=== PATIENT | female | born 1985 | race Hispanic/Latino ===

== ENCOUNTER 2016-08-06 19:37 | Emergency (ER) | payer SELFPAY ==
[2016-08-06 19:52] VITALS: BP 117/59; PULSE 74; RESP 15; TEMP 98.9; O2SAT 99
--- NOTE | 2016-08-06 20:02 | ED PDOC ---
Upper Extremity Pain/Injury Time Seen by Provider: 08/06/16 19:37 Chief Complaint (Nursing): Abnormal Skin Integrity Chief Complaint (Provider): left hand injury History Per: Patient History/Exam Limitations: no limitations Onset/Duration Of Symptoms: Hrs (around 17:30) Current Symptoms Are (Timing): Still Present Additional Complaint(s): Rola Grove is a 30 year old female who presents to the emergency department with a complaint of a deep cut to left palm of her hand associated with numbness and tingling sensation to her 3rd finger sustained when she was cutting an avocado around 17:30 today. Denies any further medical complaints. Of note, she reports being up-to-date on her tetanus vaccination. PMD: none provided Past Medical History Reviewed: Historical Data, Nursing Documentation, Vital Signs Vital Signs: Last Vital Signs Temp 98.9 F 08/06/16 19:44 Pulse 74 08/06/16 19:44 Resp 15 08/06/16 19:44 BP 117/59 L 08/06/16 19:44 Pulse Ox 99 08/06/16 19:44 - Family History Family History: States: Unknown Family Hx - Social History Current smoker - smoking cessation education provided: No Alcohol: None Drugs: Denies - Immunization History Hx Tetanus Toxoid Vaccination: Yes - Home Medications Home Medications: Ambulatory Orders Medication Instructions Recorded Cephalexin [cephalexin] 500 mg PO BID #14 cap 08/06/16 - Allergies Allergies/Adverse Reactions: Allergies Allergy/AdvReac Type Severity Reaction Status Date / Time No Known Allergies Allergy Verified 08/06/16 19:52 Review of Systems ROS Statement: Except As Marked, All Systems Reviewed And Found Negative Musculoskeletal: Positive for: Other Skin: Positive for: Other (deep laceration to left palm of hand) Neurological: Positive for: Numbness (and paresthesia to third finger of left hand) Physical Exam - Reviewed Nursing Documentation Reviewed: Yes Vital Signs Reviewed: Yes - Physical Exam Appears: Positive for: Well, Non-toxic, No Acute Distress Head Exam: Positive for: ATRAUMATIC, NORMAL INSPECTION, NORMOCEPHALIC Skin: Positive for: Normal Color, Warm, Dry Cardiovascular/Chest: Positive for: Regular Rate, Rhythm Respiratory: Positive for: Normal Breath Sounds. Negative for: Crackles, Rales , Rhonchi, Stridor Extremity: Positive for: Normal ROM, Other (1cm laceration to right palm aspect of hand. Partial thickness noted) Neurologic/Psych: Positive for: Alert, Oriented - ECG O2 Sat by Pulse Oximetry: 99 (RA) Pulse Ox Interpretation: Normal Medical Decision Making Medical Decision Making: Initial Impression: Hand laceration Initial Plan: * Xray hand (left) * Suture application * Hand splint application * Lidocaine 1% 10ml IJ Upon provider reevaluation, patient is feeling better, is medically stable, and requires no further treatment in the ED at this time. Patient will be discharged home with Rx for antibiotics. Counseling was provided and all questions were answered regarding diagnosis and need for follow up with either ED or PCP in 6-7 days for suture removal. There is agreement to discharge plan. Return if symptoms persist or worsen. splint provided wound care instructions given Clinical Impression: Hand laceration Scribe Attestation: Documented by Deedee Bond, acting as a scribe for Julieta Hooker PA-C. Provider Scribe Attestation: All medical record entries made by the Scribe were at my direction and personally dictated by me. I have reviewed the chart and agree that the record accurately reflects my personal performance of the history, physical exam, medical decision making, and the department course for this patient. I have also personally directed, reviewed, and agree with the discharge instructions and disposition. Disposition - Clinical Impression Clinical Impression: Hand laceration - Patient ED Disposition Is Patient to be Admitted: No Doctor Will See Patient In The: Office Counseled Patient/Family Regarding: Diagnosis, Need For Followup, Rx Given - Disposition Referrals: [facility] [Outside] Destin Solitario MD [Staff Provider] - Disposition: Routine/Home Disposition Time: 20:50 Condition: STABLE Prescriptions: Cephalexin [cephalexin] 500 mg PO BID #14 cap Instructions: Care For Your Stitches (ED), Laceration (ED) Procedure: Wound Repair - Time Performed Time Performed: 20:40 - Consent Obtained Consent obtained: Verbal - Performed by Performed by: Mid-level Provider - Indications Indication(s):: Laceration - Location Location:: Right, Hand (palm aspect) Shape:: Linear Dimensions Length cm: 1cm - Anesthetic Technique Anesthetic Technique: Local Local/Regional Anesthetic:: Lidocaine 1% - Debris Debris:: None - Irrigated Irrigated with ml of normal saline: 250ml plus betadine - Complexity Complexity:: Simple (one layer) - Wound repair method Sutures:: # (3), Size (5.0), Type (prolene, nonabsorbable), Technique (simple interrupted) - Patient tolerated procedure Patient Tolerated Procedure:: Well
[2016-08-06] MEDS ORDERED: Lidocaine 1% Inj (20ml) ONE (20:22)
[2016-08-06] MEDS ORDERED: Lidocaine 1% Inj (20ml) IJ STA (20:25)
--- NOTE | 2016-08-07 10:11 | RAD ---
PROCEDURE: Left Hand Radiographs. HISTORY: hand injury COMPARISON: None. FINDINGS: BONES: No evidence of acute displaced fracture nor dislocation. . Note that the distal margins of the radius and ulna are partially obscured by overlying radiopaque wrist watch. JOINTS: Normal. No osteoarthritic changes. SOFT TISSUES: No evidence of radiopaque foreign bodies or gas seen within the soft tissues. OTHER FINDINGS: None. IMPRESSION: No evidence of acute displaced fracture nor dislocation. No radiopaque foreign body seen.
== END 2016-08-06 21:15 | disposition home or self-care (01) ==
LOC: H.ER 19:37
DX: S61.412A Laceration without foreign body of left hand, initial encounter (principal); W26.0XXA Contact with knife, initial encounter